=== PATIENT | female | born 1935 | race Caucasian/White ===

== ENCOUNTER 2016-12-28 13:08 | Inpatient (IN) | payer MEDICARE, BC ==
[~2016-12-28] VITALS: Ht 160 cm; Wt 108.9 kg
[~2016-12-28 13:08] MED LIST: ATOR80TA PO; DULO60CA45 PO; FURO40TA5 PO; GABA-532 PO; HYDR-548 PO; LEVO175T7 PO; METO25TA6 PO; OMEP40CA37 PO; POTA10TA10 PO
[2016-12-28] MEDS ORDERED: MELO-107 PO (13:23)
[2016-12-28] MEDS ORDERED: TRAM50TA2 PO (13:23)
[2016-12-28] MEDS ORDERED: [UNRECOGNIZED DRUG - CODE] PO (13:23)
[2016-12-28] MEDS ORDERED: IV NORMAL SALINE 1000 ML BAG IV ONE (13:30)
[2016-12-28 14:00] LABS: BASOPHILS # (AUTO) 0.1 K/uL (0.0-8.0); BASOPHILS % (AUTO) 0.6 % (0.0-2.0); EOSINOPHILS # (AUTO) 0.4 K/uL (0.0-0.7); EOSINOPHILS % (AUTO) 3.5 % (0.0-7.0); HEMATOCRIT 36.6 % (37-47); HEMOGLOBIN 11.9 G/DL (12.0-16.0); LYMPHOCYTES # (AUTO) 2.1 K/UL (0.8-4.8); LYMPHOCYTES % (AUTO) 18.7 % (20.5-51.5); MEAN CORPUSCULAR HEMOGLOBIN 29.8 UUG (27.0-31.0); MEAN CORPUSCULAR HGB CONC 33 g/dL (32.0-37.0); MEAN CORPUSCULAR VOLUME 91.4 FL (81.0-99.0); MONOCYTES # (AUTO) 0.8 K/UL (0.1-1.30); MONOCYTES % (AUTO) 7.4 % (0.0-11.0); NEUTROPHILS # (AUTO) 7.8 K/UL (1.8-8.9); NEUTROPHILS % (AUTO) 69.8 % (38.5-71.5); PLATELET COUNT (AUTO) 319 K/UL (150-450); WHITE BLOOD COUNT (AUTO) 11.2 K/UL (4.0-11.2)
[2016-12-28 14:07] LABS: CARBON DIOXIDE 31 mmol/L (21-32); CHLORIDE 103 mmol/L (98-107); CREATININE 1.4 mg/dL (0.6-1.3); GLUCOSE 79 mg/dL (74-106); POTASSIUM 3.8 mmol/L (3.5-5.1); UREA NITROGEN, BLOOD 31 mg/dL (7-18)
[2016-12-28 14:18] LABS: ALANINE AMINOTRANSFERASE 19 U/L (14-59); ALKALINE PHOSPHATASE 120 U/L (50-136); ASPARTATE AMINOTRANSFERASE 22 U/L (15-37); BILIRUBIN,DIRECT 0.1 mg/dL (0.0-0.2); BILIRUBIN,TOTAL 0.4 mg/dL (0.2-1.0); LIPASE 149 U/L (73-393); TOTAL PROTEIN, SERUM 7.8 g/dL (6.4-8.2)
--- NOTE | 2016-12-28 14:45 | NUR ---
Call placed to [facility] Nephrology, will be paged.
--- NOTE | 2016-12-28 15:13 | NUR ---
Pt. admitted to TELE, under care of Dr. Hill. Belongs List completed
--- NOTE | 2016-12-28 15:50 | NUR ---
ADMITTED VIA W/C, ACCOMPANIED BY ER NURSE & CAREGIVER. ORIENTED TO SURROUNDINGS. DAUGHTER AT BEDSIDE
[2016-12-28 16:17] VITALS: BP 129/63
[2016-12-28] MEDS ORDERED: DIPH25CA83 PO (19:50)
[2016-12-28] MEDS ORDERED: LIDO30AD10 TD (19:50)
[2016-12-28] MEDS ORDERED: AMPH30CA3 PO (19:50)
[2016-12-28] MEDS ORDERED: LOSA25TA13 PO (19:50)
[2016-12-28] MEDS ORDERED: IBUP-23 PO (19:50)
--- NOTE | 2016-12-28 20:00 | NUR ---
PT IS ALERT AND RESPONSIVE, LAYING IN BED WITH DAUGHTER AT BEDSIDE. RESP IS EVEN AN UNLABORED. NO ACUTE DISTRESS. CALL LIGHT WITHIN REACH. WILL CONT TO MONITOR.
[2016-12-28 21:00] VITALS: BP 121/61
[2016-12-28] MEDS: PANTOPRAZOLE SODIUM 40 MG VIAL IV SCH (21:15)
[2016-12-28] MEDS: TRAMADOL HCL 50 MG TABLET PO PRN (22:57)
[2016-12-28] MEDS ORDERED: TRAMADOL HCL 50 MG TABLET ONE (23:09)
--- NOTE | 2016-12-28 23:55 | NUR ---
PT SEEN AND EXAMINED BY DR CARRION, SEE MD NOTES.
[2016-12-29 06:40] LABS: BASOPHILS # (AUTO) 0.1 K/uL (0.0-8.0); BASOPHILS % (AUTO) 0.6 % (0.0-2.0); EOSINOPHILS # (AUTO) 0.4 K/uL (0.0-0.7); EOSINOPHILS % (AUTO) 3.9 % (0.0-7.0); HEMOGLOBIN 10.5 G/DL (12.0-16.0); LYMPHOCYTES # (AUTO) 2.1 K/UL (0.8-4.8); LYMPHOCYTES % (AUTO) 22.3 % (20.5-51.5); MEAN CORPUSCULAR HEMOGLOBIN 30.3 UUG (27.0-31.0); MEAN CORPUSCULAR HGB CONC 33 g/dL (32.0-37.0); MEAN CORPUSCULAR VOLUME 91.2 FL (81.0-99.0); MONOCYTES # (AUTO) 0.7 K/UL (0.1-1.30); MONOCYTES % (AUTO) 7.5 % (0.0-11.0); NEUTROPHILS % (AUTO) 65.7 % (38.5-71.5); PLATELET COUNT (AUTO) 244 K/UL (150-450); WHITE BLOOD COUNT (AUTO) 9.3 K/UL (4.0-11.2)
[2016-12-29 06:51] LABS: CARBON DIOXIDE 31 mmol/L (21-32); CHLORIDE 107 mmol/L (98-107); CREATININE 1.3 mg/dL (0.6-1.3); GLUCOSE 101 mg/dL (74-106); HEMATOCRIT 31.8 % (37-47); POTASSIUM 4.5 mmol/L (3.5-5.1); RED BLOOD CELL COUNT(AUTO) 3.48 MIL/UL (4.2-5.4); UREA NITROGEN, BLOOD 28 mg/dL (7-18)
--- NOTE | 2016-12-29 06:58 | NUR ---
PT IN BED. RESP IS EVEN AND UNLABORED. NO SOB. NO ACUTE DISTRESS. PAIN MANAGED WITH PRN TRAMADOL. PT AWARE OF CLEAR LIQUID DIET. ON TELE SR. IV ON RIGHT HAND IS PATENT AND INTACT. CALL LIGHT WITHIN REACH. WILL CONT TO MONITOR.
[2016-12-29] MEDS ORDERED: TRAMADOL HCL 50 MG TABLET PO SCH (07:45)
--- NOTE | 2016-12-29 08:30 | NUR ---
AWAKE ALERT COOPERATE WELL NO PAIN OR N/V RESTING WELL WITH CALL LIGHT IN REACH
[2016-12-29] MEDS: LOSARTAN POTASSIUM 25 MG TABLET PO SCH (08:33)
[2016-12-29] MEDS: DULOXETINE 60 MG CAPSULE.DR PO SCH ×2 (08:33→17:21)
[2016-12-29] MEDS: LEVOTHYROXINE SODIUM 200 MCG TABLET PO SCH (08:33)
[2016-12-29] MEDS: PANTOPRAZOLE SODIUM 40 MG VIAL IV SCH (08:33)
[2016-12-29] MEDS: diphenhydrAMINE 25 MG CAP PO SCH ×3 (08:34→20:53)
[2016-12-29] MEDS: GABAPENTIN 100 MG CAPSULE PO SCH ×3 (08:34→17:21)
[2016-12-29] MEDS: FUROSEMIDE 40 MG TABLET PO SCH (08:34)
[2016-12-29] MEDS ORDERED: HOME MED MISCELLANEOUS PO SCH (09:00)
[2016-12-29] MEDS ORDERED: LIDOCAINE 5% PATCH TD SCH (09:00)
[2016-12-29] MEDS ORDERED: GOLYTELY 4000 ML BOTTLE PO ONE (10:00)
--- NOTE | 2016-12-29 10:00 | NUR ---
START GOLYTELY DRINK FOR PREP OF COLONOSCOPY [place] WELL NO N/V
[2016-12-29 11:00] VITALS: BP 130/69
--- NOTE | 2016-12-29 14:00 | NUR ---
FAMILY DAUGHTER AT BEDSIDE ITALO GOLYTELY WELL AND HAVE BM SOFT FORM WILL CONTINUE GOLYTE THIS PM
[2016-12-29 15:14] VITALS: BP 127/74
--- NOTE | 2016-12-29 17:30 | NUR ---
STABLE CONDITION NO RESPIRATORY DISTRESS OR PAIN OR SOB ITALO PO GOLYTELY PREP WELL SAFETY MEASURE PROVIDED CALL [place] IN REACH
[2016-12-29 20:00] VITALS: BP 144/62
[2016-12-29] MEDS ORDERED: MAGNESIUM CITRATE 296 ML BOTTLE PO ONE (20:00)
[2016-12-29] MEDS: TRAMADOL HCL 50 MG TABLET PO PRN (20:00)
[2016-12-29] MEDS: FAMOTIDINE. 20 MG/2 ML VIAL IV SCH (20:00)
--- NOTE | 2016-12-29 20:00 | NUR ---
patient alert, oriented,in no acute distress,bp stable, NSR on tele monitor,tolerated Citrate of mag well, no nausea noted,already having multiple loose yellowish stool,not clear,no active bleeding noted.
[2016-12-29] MEDS ORDERED: ATORVASTATIN 40 MG TABLET PO SCH (21:00)
[2016-12-29] MEDS ORDERED: FAMOTIDINE. 20 MG/2 ML VIAL IV SCH (21:00)
[2016-12-30] VITALS: BP 113/75
--- NOTE | 2016-12-30 00:05 | NUR ---
npo after midnight for colonoscopy and EGD in am,consent signed, procedure explained to patient,stool clear now,
[2016-12-30 02:21] LABS: *BILIRUBIN,URIN NEGATIVE (NEGATIVE); *BLOOD, URINE NEGATIVE (NEGATIVE); *CLARITY,URINE CLEAR (CLEAR); *COLOR,URINE YELLOW (YELLOW); *KETONES,URINE NEGATIVE (NEGATIVE); *PROTEIN,URINE NEGATIVE (NEGATIVE); *UROBILINOGEN,URINE 0.2 E.U./dl (NORMAL); LEUKOCYTE ESTERASE ,URINE NEGATIVE (NEGATIVE); NITRITE, URINE NEGATIVE (NEGATIVE); UGLUCOSE NEGATIVE (NEGATIVE)
--- NOTE | 2016-12-30 02:21 | NUR ---
patient slept intermittently,NSR on monitor,bedside commode provided,safety precautions,bed alarm on,instructed patient to call for assistance.
[2016-12-30 02:46] LABS: BACTERIA,URINE FEW /HPF (NONE SEEN); RBC,URINE 0-3 /HPF (0-3); SQUAMOUS EPITHELIAL CELL,UR FEW /HPF (NONE SEEN); WBC,URINE 0-3 /HPF (0-3)
[2016-12-30 04:00] VITALS: BP 103/52
--- NOTE | 2016-12-30 06:33 | NUR ---
CONTINUE NPO ,NSR ON MONITOR,,STOOL CLEAR/LIQUID YELLOWISH ,NO BLEEDING NOTED.
[2016-12-30] MEDS: LEVOTHYROXINE SODIUM 200 MCG TABLET PO SCH ×2 (06:42→10:45)
--- NOTE | 2016-12-30 07:20 | NUR ---
TO GI LAB VIA BED CONDITION STABLE NO PAIN OR SOB CONSENT SIGNS AND CHECK LIST COMPLETE
[2016-12-30] MEDS: diphenhydrAMINE 25 MG CAP PO SCH ×2 (09:00→10:50)
[2016-12-30] MEDS: MELOXICAM 7.5 MG TABLET PO SCH ×2 (09:00→10:45)
[2016-12-30] MEDS: FUROSEMIDE 40 MG TABLET PO SCH ×2 (09:00→10:45)
[2016-12-30] MEDS: LOSARTAN POTASSIUM 25 MG TABLET PO SCH ×2 (09:00→10:45)
[2016-12-30] MEDS: GABAPENTIN 100 MG CAPSULE PO SCH ×2 (09:00→10:57)
[2016-12-30] MEDS: DULOXETINE 60 MG CAPSULE.DR PO SCH ×2 (09:00→10:45)
[2016-12-30] MEDS: FAMOTIDINE. 20 MG/2 ML VIAL IV SCH ×2 (09:00→10:45)
[2016-12-30 10:00] VITALS: BP 147/61
[2016-12-30] MEDS ORDERED: HYDROCORTISONE RECTAL SUPP 25 MG EACH RC SCH (10:00)
--- NOTE | 2016-12-30 10:00 | NUR ---
BACK TO ROOM VS TAKEN STABLE NO SOB OR PAIN RESTING WITH CALL LIGHT IN REACH CLOSED OBSERVATION
[2016-12-30 11:11] VITALS: BP 140/64
[2016-12-30] MEDS ORDERED: PANT40TA2 PO (11:12)
[2016-12-30] MEDS ORDERED: HYDR25SU13 RC (11:13)
--- NOTE | 2016-12-30 12:00 | NUR ---
DR PERERA SEE PATIENT AND ORDER OK TO D/C HOME TODAY ,D/C INSTRUCTION REGARDING F/U WITH OWN PMD AND GI MD AND CONTINUE HOME MEDICINE DR SIMMONS,VERBALIZES UNDERSTAND AND SIGNS D/C SHEET HL WAS D/C PRIOR DISCHARGE HOME TODAY
--- NOTE | 2016-12-30 13:30 | NUR ---
PHAMACY INSTRUCTION ON HOME MEDICINE PRECRIPTION ,VERBALIZES UNDRSTAND HL WAS D/C
[2016-12-30] MEDS ORDERED: PROPOFOL 200 MG/20 ML BOTTLE IV ONE (13:44)
[2016-12-30] MEDS ORDERED: GLYCOPYRROLATE 0.2 MG/ML VIAL MC ONE (13:44)
[2016-12-30] MEDS ORDERED: IV LACTATED RINGERS SOLUTION 1,000 ML BAG IV ONE (13:44)
[2016-12-30] MEDS ORDERED: LIDOCAINE HCL 2% 20 ML VIAL MC ONE (13:44)
--- NOTE | 2016-12-30 13:45 | NUR ---
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
== END 2016-12-30 13:45 | disposition home or self-care (01) | DRG 378 ==
LOC: ER 13:08 → TELE 15:25
PROVIDERS: ADMIT Internal Medicine; ATTEND Internal Medicine
PROC: 0DBP8ZX Excision of Rectum, Via Natural or Artificial Opening Endoscopic, Diagnostic (ICD-10-PCS; 2016-12-30)
PROC: 0DBN8ZX Excision of Sigmoid Colon, Via Natural or Artificial Opening Endoscopic, Diagnostic (ICD-10-PCS; 2016-12-30)
PROC: 0DB48ZX Excision of Esophagogastric Junction, Via Natural or Artificial Opening Endoscopic, Diagnostic (ICD-10-PCS; principal; 2016-12-30 08:32)
PROC: 0DB68ZX Excision of Stomach, Via Natural or Artificial Opening Endoscopic, Diagnostic (ICD-10-PCS; 2016-12-30 08:32)
DX: K29.01 Acute gastritis with bleeding (principal); Z68.41 Body mass index [BMI] 40.0-44.9, adult; F03.90 Unspecified dementia, unspecified severity, without behavioral disturbance, psychotic disturbance, mood disturbance, and anxiety; I11.0 Hypertensive heart disease with heart failure; I50.9 Heart failure, unspecified; K92.2 Gastrointestinal hemorrhage, unspecified; K64.1 Second degree hemorrhoids; K57.90 Diverticulosis of intestine, part unspecified, without perforation or abscess without bleeding; G62.9 Polyneuropathy, unspecified; K21.9 Gastro-esophageal reflux disease without esophagitis; K44.9 Diaphragmatic hernia without obstruction or gangrene; E66.01 Morbid (severe) obesity due to excess calories; Z96.641 Presence of right artificial hip joint; K63.5 Polyp of colon; Z85.528 Personal history of other malignant neoplasm of kidney; Z90.5 Acquired absence of kidney; Z79.899 Other long term (current) drug therapy; M25.519 Pain in unspecified shoulder; Z79.1 Long term (current) use of non-steroidal anti-inflammatories (NSAID); E78.5 Hyperlipidemia, unspecified; E03.9 Hypothyroidism, unspecified; F98.8 Other specified behavioral and emotional disorders with onset usually occurring in childhood and adolescence; D12.8 Benign neoplasm of rectum; G89.29 Other chronic pain; I87.2 Venous insufficiency (chronic) (peripheral); M19.90 Unspecified osteoarthritis, unspecified site; D50.0 Iron deficiency anemia secondary to blood loss (chronic)
CPT/HCPCS: 36415; 70030-TC; 71010; 83605; 83690; 85025; 85730; 86850; 86900; 86901; 87040; 93005; A4217; A4663; C9113; J3490; J7030; J7120; Q0163

== ENCOUNTER 2017-12-17 01:53 | Emergency (ER) | payer MEDICARE, BC ==
[~2017-12-17] VITALS: Ht 160 cm; Wt 106.6 kg
[~2017-12-17 01:53] MED LIST changes: +AMPH30CA3 PO; +DIPH25CA83 PO; -HYDR-548 PO; +HYDR25SU13 RC; -LEVO175T7 PO; +LIDO30AD10 TD; +LOSA25TA13 PO; +MELO-107 PO; -METO25TA6 PO; -OMEP40CA37 PO; +PANT40TA2 PO; -POTA10TA10 PO; +TRAM50TA2 PO; +[UNRECOGNIZED DRUG - CODE] PO
--- NOTE | 2017-12-17 02:35 | NUR ---
Dr. Tony GR MD at bedside for MSE.
[2017-12-17] MEDS ORDERED: FAMOTIDINE 20 MG TABLET PO ONE (02:45)
[2017-12-17] MEDS ORDERED: MORPHINE SULFATE 4 MG/1 ML DISP.SYRIN IM ONE (02:45)
[2017-12-17] MEDS ORDERED: predniSONE 20 MG TABLET PO ONE (02:45)
[2017-12-17] MEDS ORDERED: ONDANSETRON 4 MG/2 ML VIAL IM ONE (02:45)
[2017-12-17] MEDS ORDERED: FAMOTIDINE 20 MG TABLET ONE (02:48)
[2017-12-17] MEDS ORDERED: predniSONE 20 MG TABLET ONE (02:49)
[2017-12-17] MEDS ORDERED: MORPHINE SULFATE 4 MG/1 ML DISP.SYRIN ONE (02:49)
[2017-12-17] MEDS ORDERED: ONDANSETRON 4 MG/2 ML VIAL ONE (02:49)
--- NOTE | 2017-12-17 04:02 | NUR ---
Patient discharged to home in stable conditon. Written and verbal after care instructions given. Patient verbalizes understanding of instructions.
[2017-12-17 04:05] VITALS: BP 138/74
== END 2017-12-17 04:06 | disposition home or self-care (01) ==
LOC: ER 02:00
DX: M10.9 Gout, unspecified (principal); E78.5 Hyperlipidemia, unspecified
CPT/HCPCS: 73660; A4663; J2270; J2405; J7512